=== PATIENT | male | born 1980 | race African-American/Black ===

== ENCOUNTER 2021-02-28 16:07 | Emergency (ER) | payer SELFPAY ==
[~2021-02-28] VITALS: Ht 170.2 cm; Wt 87.2 kg
[2021-02-28] MEDS ORDERED: HYDROCODONE/APAP 5MG-325MG TAB PO ONE (17:15)
[2021-02-28] MEDS ORDERED: SODIUM CHLORIDE 0.9% 1000ML 1,000 ML IV SCH (17:15)
[2021-02-28] MEDS ORDERED: IOPAMIDOL 370 MG/ML 200 ML INFUS..BTL INJ ONE (17:43)
[2021-02-28] MEDS ORDERED: DIATRIZOATE MEGL/DIATRIZOA SOD 30 ML BTL PO ONE (17:43)
[2021-02-28] MEDS ORDERED: SODIUM CHLORIDE 0.9% 50ML 50 ML ONE (17:43)
[2021-02-28] MEDS ORDERED: HYDROCODONE/APAP 5MG-325MG TAB ONE (18:08)
[2021-02-28] MEDS ORDERED: SODIUM CHLORIDE 0.9% 1000ML 1,000 ML ONE (18:08)
[2021-02-28] MEDS ORDERED: ULTRAM 50MG50 MG PO (20:37)
== END 2021-02-28 21:00 | disposition home or self-care (01) ==
LOC: FSED 16:23
DX: R10.31 Right lower quadrant pain (principal); K65.4 Sclerosing mesenteritis; I10 Essential (primary) hypertension; F17.210 Nicotine dependence, cigarettes, uncomplicated
CPT/HCPCS: 74177; 80048; 80076; 85025; 81003; 96374; 99284; J7030; Q9967

== ENCOUNTER 2021-04-28 07:54 | Emergency (ER) | payer SELFPAY ==
[~2021-04-28] VITALS: Ht 170.2 cm; Wt 87.1 kg
[~2021-04-28 07:54] MED LIST: ULTRAM 50MG50 MG PO
[2021-04-28] MEDS ORDERED: ULTRAM50 MG PO (08:34)
[2021-04-28] MEDS ORDERED: NAPROSYN500 MG PO (08:37)
[2021-04-28] MEDS ORDERED: TRAMADOL HCL 50 MG TAB ONE (08:43)
[2021-04-28] MEDS ORDERED: TRAMADOL HCL 50 MG TAB PO ONE (08:45)
== END 2021-04-28 09:08 | disposition home or self-care (01) ==
LOC: FSED 08:33
DX: M79.641 Pain in right hand (principal); S60.221A Contusion of right hand, initial encounter; W23.1XXA Caught, crushed, jammed, or pinched between stationary objects, initial encounter; F17.210 Nicotine dependence, cigarettes, uncomplicated; I10 Essential (primary) hypertension; R73.03 Prediabetes
CPT/HCPCS: 99284

== ENCOUNTER 2021-06-17 22:37 | Emergency (ER) | payer SELFPAY ==
[~2021-06-17] VITALS: Ht 170.2 cm; Wt 87.1 kg
[~2021-06-17 22:37] MED LIST changes: +NAPROSYN500 MG PO; +ULTRAM50 MG PO
[2021-06-17] MEDS ORDERED: NAPROSYN500 MG PO (23:43)
== END 2021-06-18 00:14 | disposition home or self-care (01) ==
LOC: FSED 22:50
DX: R36.1 Hematospermia (principal); R10.31 Right lower quadrant pain; K40.90 Unilateral inguinal hernia, without obstruction or gangrene, not specified as recurrent; I10 Essential (primary) hypertension
CPT/HCPCS: 81003; 99282